=== PATIENT | female | born 1955 | race Caucasian/White ===

== ENCOUNTER 2020-06-02 12:51 | Inpatient (IN) | payer MEDICAID, MEDICARE, OTHER ==
[2020-06-02 19:45] VITALS: BP 111/71
[2020-06-02] MEDS ORDERED: OLANZapine 5 mg Oral Disintegrating Tab PO ONE (21:10)
[2020-06-03] MEDS ORDERED: Magnesium Hydroxide (MOM) 30 mL UDC PO PRN (10:27)
[2020-06-03] MEDS ORDERED: Acetaminophen 500 MG TAB PO PRN (10:27)
[2020-06-03] MEDS ORDERED: Maalox 30 mL Cup PO PRN (10:27)
--- NOTE | 2020-06-03 15:56 | History & Physical ---
ADMIT DATE: 06/02/2020 HISTORY OF PRESENT ILLNESS: We have a 65-year-old female with hypertension, who is admitted for acute psychosis. The patient is aggressive, delusional, having bizarre thoughts. At this time, the patient has no nausea, vomiting, abdominal pain, diarrhea, rectal bleeding, or melena. PAST MEDICAL HISTORY: 1. Depression. 2. Hypertension. PAST SURGICAL HISTORY: None. MEDICATIONS: List reviewed. ALLERGIES: None. SOCIAL HISTORY: Tobacco, IV drugs, ETOH negative. PHYSICAL EXAMINATION: VITAL SIGNS: Temperature is 97.5, pulse 92, respirations 20, blood pressure 137/77, satting 97%. HEENT: Normocephalic, atraumatic head exam. NECK: Supple. CARDIOVASCULAR: Regular rate and rhythm. LUNGS: Decreased breath sounds. ABDOMEN: Soft, nontender. EXTREMITIES: No edema, cyanosis or clubbing. CN is grossly intact ASSESSMENT: 1. Hypertension. 2. Depression. PLAN: The patient will have routine labs done. CBC, CMP. We will check for COVID. JOB# [id number] JUAN JOSE
--- NOTE | 2020-06-03 23:01 | Psychiatric Evaluation ---
DATE OF SERVICE: 06/03/2020 IDENTIFYING INFORMATION: The patient is a 55-year-old female. CHIEF COMPLAINT: "I am hearing voices and I am going to kill myself." HISTORY OF PRESENT ILLNESS: The patient was brought on a hold from the [facility] on a hold for danger to self. According to the hold, the patient apparently was hearing voices for a few days and that she did not know where she was. She did not know what the day. She was guarded. She is depressed. The patient has been anxious with a history of schizophrenia. When I talked to her, she was lying. She has no eye contact whatsoever. Admits to using Speed, vodka and heroin. She last used vodka and heroin few days ago. Urine drug screen was positive for meth. She reports that she is sleeping all the time. Appetite is okay. She reports hearing voices for years and sometimes she feels like she wanted to harm herself, unable to contract for safety. She reports sometimes the voices tell her to harm herself. Onset of illness has been going on for years, unable to be more specific. PAST PSYCHIATRIC HISTORY: The patient had multiple prior hospitalizations at least more than twice in the last 10 years and has 2 prior suicide attempts by overdosing on drugs. SUBSTANCE ABUSE HISTORY: Using Speed, vodka and heroin if she is home for a year and has been using lately, but has been using speed and vodka. She said she last used it a week ago. Unable to be more specific about it. MEDICAL HISTORY: The patient has no known drug allergy. I will defer the medical condition to the medical doctor. The patient advised scarf to the base of her nose that is tender to touch and redness. FAMILY AND SOCIAL HISTORY: The patient reported that she is . She has 3 children, 2 boys and a girl. However, it was very hard to get information from her to be pushed very hard. She was hard of hearing. She has 10th grade education. 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 Denies any abuse. She later said she lives in [place]. MENTAL STATUS EXAMINATION: The patient is appropriately dressed, not very groomed. She has no eye contact, whatsoever. Speech is coherent. She has some thought blocking. She was alert. She was unable to tell me the date. When asked where she was, she said I am very far away from home. She reports that she hears voices and she wanted to harm herself because of that. She denies any intent to harm anyone. She has been hearing voices for years and sleeps all the time. Appetite is okay. She gets angry, irritable. She seems to have average intelligence, but though she was uncooperative, we will further investigate asking long-term memory is good for her age, date of . Recent memory is good. She remember events after coming here with her breakfast. Immediate memory is poor, cannot concentrate enough and repeat things after me. Insight about illness is poor, does not realize what problem she has. Judgment was fair, however, she wanted to harm himself. IMPRESSION: Schizoaffective disorder, bipolar type, polysubstance abuse, vodka, alcohol and Speed. History of alcohol having used. MEDICAL DIAGNOSIS: As per medical doctor. PLAN: The patient was started back on her medication, which is BuSpar 15 mg twice a day, Haldol 5 mg twice a day at bedtime and olanzapine 10 mg at bedtime. We will do group therapy, milieu therapy, and individual therapy. ESTIMATED LENGTH OF STAY: 3-7 days. DISCHARGE CRITERIA: Decreasing depression, psychosis. No longer suicidal. After discharge, outpatient treatment. JOB# [id number] MTDD
[2020-06-04] MEDS: Multivitamin Tab PO SCH (08:31)
[2020-06-04 15:41] LABS: CHOLESTEROL 159 mg/dL (<200); TRIGLYCERIDES 129 mg/dL (30-150)
[2020-06-04 15:42] LABS: LDL CHOLESTEROL 116 mg/dL (0-129)
--- NOTE | 2020-06-04 16:02 | Internal Medicine Prog Note ---
Internal Medicine Subjective - Subjective Service Date: 06/04/20 Patient seen and examined:: without staff Patient is:: awake, asleep Per staff patient has:: no adverse event, no episodes of fall Internal Medicine Objective - Results Recent Labs: Laboratory Last Values POC Glucose 100 MG/DL (70 - 105) 06/02/20 19:47 Triglycerides 129 mg/dL (30-150) 06/04/20 12:49 Cholesterol 159 mg/dL (<200) 06/04/20 12:49 LDL Cholesterol 116 mg/dL (0-129) 06/04/20 12:49 HDL Cholesterol 39 mg/dL (>55) L 06/04/20 12:49 - Physical Exam Vitals and I&O: Vital Signs Temp 97.0 F 06/04/20 14:00 Pulse 109 06/04/20 14:00 Resp 20 06/04/20 14:00 BP 117/92 06/04/20 14:00 Pulse Ox 97 06/04/20 14:00 Intake & Output 06/03/20 06/04/20 06/04/20 18:59 06:59 18:59 Intake Total 1200 120 Balance 1200 120 Intake: Oral 1200 120 Other: # Voids 4 2 # Bowel Movements 1 Active Medications: Current Medications Acetaminophen (Tylenol) 650 mg PO Q4H PRN PRN Reason: Pain (Mild 1-3) Stop: 08/02/20 10:26 Last Admin: 06/03/20 10:36 Dose: 650 mg Acetaminophen (Tylenol Extra Strength) 1,000 mg PO Q6H PRN PRN Reason: Pain (Moderate 4-6) Stop: 08/02/20 10:26 Al Hydrox/Mg Hydrox/Simethicone (Maalox) 30 ml PO Q4HR PRN PRN Reason: GI DISTRESS Stop: 08/02/20 10:26 Buspirone HCl (Buspar) 15 mg PO BID ANDRES Stop: 08/02/20 08:59 Last Admin: 06/04/20 08:31 Dose: 15 mg Haloperidol (Haldol) 5 mg PO HS ANDRES; Protocol Stop: 08/02/20 20:59 Last Admin: 06/03/20 20:51 Dose: 5 mg Ibuprofen (Motrin) 400 mg PO Q4H PRN PRN Reason: Pain (Severe 7-10) Stop: 08/02/20 10:26 Last Admin: 06/04/20 15:34 Dose: 400 mg Lorazepam (Ativan) 0.5 mg PO Q4HR PRN; Protocol PRN Reason: Anxiety Stop: 07/03/20 10:26 Last Admin: 06/04/20 08:32 Dose: 0.5 mg Magnesium Hydroxide (Milk Of Magnesia) 30 ml PO HS PRN PRN Reason: Constipation Multivitamins/Vitamin C (Theragran) 1 tab PO DAILY ANDRES Stop: 08/03/20 08:59 Last Admin: 06/04/20 08:31 Dose: 1 tab Olanzapine (Zyprexa) 15 mg PO DAILY ANDRES; Protocol Stop: 08/04/20 08:59 Trazodone HCl (Desyrel) 100 mg PO HS ANDRES Stop: 08/02/20 20:59 Last Admin: 06/03/20 20:51 Dose: 100 mg Zolpidem Tartrate (Ambien) 5 mg PO HS PRN PRN Reason: Insomnia Stop: 08/02/20 10:26 Last Admin: 06/03/20 22:53 Dose: 5 mg HEENT: NC/AT Neck: Supple Lungs: CTAB Cardiovascular: RRR, Normal S1, Normal S2 Abdomen: soft Extremities: clear Internal Medicine Assmt/Plan - Assessment Assessment: 1. HTN 2. Depression - Plan Plan: continue supportive care d/w r.n. reviewed complete medical records
[2020-06-04 17:00] LABS: HEMATOCRIT 45.6 % (36-48); HEMOGLOBIN 14.6 g/dL (12.0-16.0); MEAN CORPUSCULAR HEMOGLOBIN 27 pg (27-31); MEAN CORPUSCULAR HGB CONC 32 % (32-36); MEAN CORPUSCULAR VOLUME 85 fL (79.0-98.0); PLATELET COUNT 123 K/uL (130-430); RED BLOOD COUNT 5.36 MIL/uL (4.2-6.2); RED CELL DISTRIBUTION WIDTH 14.5 % (9.0-15.0); WHITE BLOOD COUNT 8.7 K/uL (4.8-10.8)
[2020-06-04 17:01] LABS: % NEUTROPHILS 70.5 % (40-70); BASOPHILS # (AUTO) 0.1 K/uL (0.0-0.2); BASOPHILS % (AUTO) 0.7 % (0.0-2.0); EOSINOPHILS # (AUTO) 0.3 K/uL (0.0-0.4); EOSINOPHILS % (AUTO) 3.7 % (0-4); LYMPHOCYTES # (AUTO) 1.5 K/uL (1.0-5.5); LYMPHOCYTES % (AUTO) 17.5 % (20.5-51.5); MONOCYTES # (AUTO) 0.7 K/uL (0.0-1.0); MONOCYTES % (AUTO) 7.6 % (1.7-9.3); NEUTROPHILS # (AUTO) 6.2 K/uL (1.8-7.7)
--- NOTE | 2020-06-04 18:48 | Progress Notes ---
DATE: 06/04/2020 Case was discussed with staff of the patient, reviewed records. The patient is isolating herself. She continues to look tired, overwhelmed. She is not sure if she is hearing voices or seeing nightmares, but then she cannot remember. She is not forthcoming much with the information though she continues to be easily agitated, sleeping well, eating well or at least better as per the staff. No side effects with the medication, no sedation, no nausea, no extrapyramidal symptoms. I will be increasing her Zyprexa to 50 mg at bedtime and lab work showed blood sugar within normal limits. We will continue outpatient group therapy, milieu therapy, and adjust medications as needed. JOB# [id number]
[2020-06-05 05:24] LABS: A1C 5.5 % (4.8-5.6)
[2020-06-05] MEDS: Multivitamin Tab PO SCH (08:36)
--- NOTE | 2020-06-05 14:20 | Progress Notes ---
DATE: 06/05/2020 COVERING PHYSICIAN: Monique Posadas MD SUBJECTIVE: The patient was interviewed. Case was discussed with staff. Chart and records were reviewed. Per the staff, the patient continues to be very depressed and suicidal, remains on 1:1 sitter due to her suicidal thoughts. The patient was visited at bedside. The patient reports that she is not sleeping well. She has nightmares. She feels depressed. She feels suicidal. She reports the medications are not causing any side effects, but she reports that she is not feeling better at this time. MENTAL STATUS EXAMINATION: The patient appears her stated age, lying in the hospital bed, looking away from this provider, unkempt, depressed. Speech is soft. Thought process is concrete, admitting to suicidal thoughts. Denying any homicidal thoughts, denying any hallucinations at this time, but does admit to intimidating voices and also nightmares. She is alert and oriented x 2. Insight, judgment and impulse control appeared to be poor. ASSESSMENT AND PLAN: We will continue the patient's acute psychiatric hospitalization. We will continue 1:1 sitter. We will continue medications as prescribed. We will encourage the patient to verbalize her needs and participate in group and milieu therapy. JOB# [id number]
--- NOTE | 2020-06-05 14:56 | Internal Medicine Prog Note ---
Internal Medicine Subjective - Subjective Service Date: 06/05/20 Patient seen and examined:: without staff Patient is:: awake, asleep Per staff patient has:: no adverse event, no episodes of fall Internal Medicine Objective - Results Result Diagrams: 06/04/20 12:49 Recent Labs: Laboratory Last Values WBC 8.7 K/uL (4.8-10.8) 06/04/20 12:49 RBC 5.36 MIL/uL (4.2-6.2) 06/04/20 12:49 Hgb 14.6 g/dL (12.0-16.0) 06/04/20 12:49 Hct 45.6 % (36-48) 06/04/20 12:49 MCV 85 fL (79.0-98.0) 06/04/20 12:49 MCH 27 pg (27-31) 06/04/20 12:49 MCHC 32 % (32-36) 06/04/20 12:49 RDW 14.5 % (9.0-15.0) 06/04/20 12:49 Plt Count 123 K/uL (130-430) L 06/04/20 12:49 MPV 10.7 fl (7.4-10.4) H 06/04/20 12:49 Neut % (Auto) 70.5 % (40-70) H 06/04/20 12:49 Lymph % (Auto) 17.5 % (20.5-51.5) L 06/04/20 12:49 [place] % (Auto) 7.6 % (1.7-9.3) 06/04/20 12:49 Eos % (Auto) 3.7 % (0-4) 06/04/20 12:49 Baso % (Auto) 0.7 % (0.0-2.0) 06/04/20 12:49 Neut # (Auto) 6.2 K/uL (1.8-7.7) 06/04/20 12:49 Lymph # (Auto) 1.5 K/uL (1.0-5.5) 06/04/20 12:49 [place] # (Auto) 0.7 K/uL (0.0-1.0) 06/04/20 12:49 Eos # (Auto) 0.3 K/uL (0.0-0.4) 06/04/20 12:49 Baso # (Auto) 0.1 K/uL (0.0-0.2) 06/04/20 12:49 POC Glucose 100 MG/DL (70 - 105) 06/02/20 19:47 Hemoglobin A1c 5.5 % (4.8-5.6) 06/04/20 12:49 Triglycerides 129 mg/dL (30-150) 06/04/20 12:49 Cholesterol 159 mg/dL (<200) 06/04/20 12:49 LDL Cholesterol 116 mg/dL (0-129) 06/04/20 12:49 HDL Cholesterol 39 mg/dL (>55) L 06/04/20 12:49 - Physical Exam Vitals and I&O: Vital Signs Temp 98.7 F 06/05/20 06:13 Pulse 100 06/05/20 06:13 Resp 16 06/05/20 08:00 BP 115/70 06/05/20 06:13 Pulse Ox 93 06/05/20 06:13 Intake & Output 06/04/20 06/05/20 06/05/20 18:59 06:59 18:59 Intake Total 1200 300 Balance 1200 300 Intake: Oral 1200 300 Other: # Voids 4 1 # Bowel Movements 1 0 Active Medications: Current Medications Acetaminophen (Tylenol) 650 mg PO Q4H PRN PRN Reason: Pain (Mild 1-3) Stop: 08/02/20 10:26 Last Admin: 06/03/20 10:36 Dose: 650 mg Acetaminophen (Tylenol Extra Strength) 1,000 mg PO Q6H PRN PRN Reason: Pain (Moderate 4-6) Stop: 08/02/20 10:26 Al Hydrox/Mg Hydrox/Simethicone (Maalox) 30 ml PO Q4HR PRN PRN Reason: GI DISTRESS Stop: 08/02/20 10:26 Buspirone HCl (Buspar) 15 mg PO BID ANDRES Stop: 08/02/20 08:59 Last Admin: 06/05/20 08:28 Dose: 15 mg Haloperidol (Haldol) 5 mg PO HS ANDRES; Protocol Stop: 08/02/20 20:59 Last Admin: 06/04/20 21:14 Dose: 5 mg Ibuprofen (Motrin) 400 mg PO Q4H PRN PRN Reason: Pain (Severe 7-10) Stop: 08/02/20 10:26 Last Admin: 06/05/20 11:37 Dose: 400 mg Lorazepam (Ativan) 0.5 mg PO Q4HR PRN; Protocol PRN Reason: Anxiety Stop: 07/03/20 10:26 Last Admin: 06/05/20 08:28 Dose: 0.5 mg Magnesium Hydroxide (Milk Of Magnesia) 30 ml PO HS PRN PRN Reason: Constipation Multivitamins/Vitamin C (Theragran) 1 tab PO DAILY ANDRES Stop: 08/03/20 08:59 Last Admin: 06/05/20 08:36 Dose: 1 tab Neomycin/Polymyxin/Bacitracin (Triple Antibiotic Pkt) 1 pkt TP BID ANDRES Stop: 08/04/20 14:59 Olanzapine (Zyprexa) 15 mg PO DAILY ANDRES; Protocol Stop: 08/04/20 08:59 Last Admin: 06/05/20 08:28 Dose: 15 mg Trazodone HCl (Desyrel) 100 mg PO HS ANDRES Stop: 08/02/20 20:59 Last Admin: 06/04/20 21:13 Dose: 100 mg Zolpidem Tartrate (Ambien) 5 mg PO HS PRN PRN Reason: Insomnia Stop: 08/02/20 10:26 Last Admin: 06/03/20 22:53 Dose: 5 mg HEENT: NC/AT Neck: Supple Lungs: CTAB Cardiovascular: RRR, Normal S1, Normal S2 Abdomen: soft Extremities: clear Internal Medicine Assmt/Plan - Assessment Assessment: 1. HTN 2. Depression - Plan Plan: continue supportive care d/w r.n. reviewed complete medical records
[2020-06-05] MEDS ORDERED: Triple Antibiotic 0.94 gm Pkt TP SCH (15:00)
[2020-06-05] MEDS ORDERED: Triple Antibiotic 0.94 gm Pkt TP ONE (17:20)
[2020-06-05] MEDS: Triple Antibiotic 0.94 gm Pkt TP SCH (17:23)
[2020-06-06] MEDS: Multivitamin Tab PO SCH (08:16)
[2020-06-06] MEDS: Triple Antibiotic 0.94 gm Pkt TP SCH ×2 (08:16→16:27)
--- NOTE | 2020-06-06 12:33 | Progress Notes ---
DATE: 06/06/[address] Posadas. SUBJECTIVE: The patient was interviewed. Case was discussed with staff. Chart and records were reviewed. Per the staff, the patient is with confusion, depressed and anxious at time, overall withdrawn, remains on 1:1 sitter yesterday due to suicidal thoughts. The patient this morning is depressed, withdrawn, isolated to her room, not willing to cooperate much with the interview, admits to ongoing depression and suicidal thoughts, wanting to sleep and not willing to cooperate. MENTAL STATUS EXAMINATION: The patient is lying in the hospital bed. She is unkempt appearing, poor eye contact, selectively mute, reports depression and suicidal thoughts ____ when does engage, overall not engaging. Thought process appears to be concrete. Denying any hallucinations at this time. Alert and oriented to person and place. Insight, judgment and impulse control appear to be poor. ASSESSMENT AND PLAN: We will continue the patient's acute psychiatric hospitalization given the severity of her symptoms and ongoing suicidal thoughts. We will continue medications as prescribed. We will encourage the patient to verbalize needs and attend to hygiene and also participate in group therapy. JOB# [id number]
[2020-06-06] MEDS: Nicotine 14 mg/24 hr Tdm TD SCH (13:54)
--- NOTE | 2020-06-06 14:31 | Internal Medicine Prog Note ---
Internal Medicine Subjective - Subjective Service Date: 06/06/20 Patient seen and examined:: without staff Patient is:: awake, asleep Per staff patient has:: no adverse event, no episodes of fall Internal Medicine Objective - Results Result Diagrams: 06/04/20 12:49 Recent Labs: Laboratory Last Values WBC 8.7 K/uL (4.8-10.8) 06/04/20 12:49 RBC 5.36 MIL/uL (4.2-6.2) 06/04/20 12:49 Hgb 14.6 g/dL (12.0-16.0) 06/04/20 12:49 Hct 45.6 % (36-48) 06/04/20 12:49 MCV 85 fL (79.0-98.0) 06/04/20 12:49 MCH 27 pg (27-31) 06/04/20 12:49 MCHC 32 % (32-36) 06/04/20 12:49 RDW 14.5 % (9.0-15.0) 06/04/20 12:49 Plt Count 123 K/uL (130-430) L 06/04/20 12:49 MPV 10.7 fl (7.4-10.4) H 06/04/20 12:49 Neut % (Auto) 70.5 % (40-70) H 06/04/20 12:49 Lymph % (Auto) 17.5 % (20.5-51.5) L 06/04/20 12:49 [place] % (Auto) 7.6 % (1.7-9.3) 06/04/20 12:49 Eos % (Auto) 3.7 % (0-4) 06/04/20 12:49 Baso % (Auto) 0.7 % (0.0-2.0) 06/04/20 12:49 Neut # (Auto) 6.2 K/uL (1.8-7.7) 06/04/20 12:49 Lymph # (Auto) 1.5 K/uL (1.0-5.5) 06/04/20 12:49 [place] # (Auto) 0.7 K/uL (0.0-1.0) 06/04/20 12:49 Eos # (Auto) 0.3 K/uL (0.0-0.4) 06/04/20 12:49 Baso # (Auto) 0.1 K/uL (0.0-0.2) 06/04/20 12:49 POC Glucose 100 MG/DL (70 - 105) 06/02/20 19:47 Hemoglobin A1c 5.5 % (4.8-5.6) 06/04/20 12:49 Triglycerides 129 mg/dL (30-150) 06/04/20 12:49 Cholesterol 159 mg/dL (<200) 06/04/20 12:49 LDL Cholesterol 116 mg/dL (0-129) 06/04/20 12:49 HDL Cholesterol 39 mg/dL (>55) L 06/04/20 12:49 - Physical Exam Vitals and I&O: Vital Signs Temp 98.7 F 06/06/20 06:17 Pulse 84 06/06/20 06:17 Resp 16 06/06/20 07:36 BP 113/71 06/06/20 06:17 Pulse Ox 91 06/06/20 06:17 Intake & Output 06/05/20 06/06/20 06/06/20 18:59 06:59 18:59 Intake Total 1200 240 Balance 1200 240 Intake: Oral 1200 240 Other: # Voids 5 2 # Bowel Movements 1 Active Medications: Current Medications Acetaminophen (Tylenol) 650 mg PO Q4H PRN PRN Reason: Pain (Mild 1-3) Stop: 08/02/20 10:26 Last Admin: 06/03/20 10:36 Dose: 650 mg Acetaminophen (Tylenol Extra Strength) 1,000 mg PO Q6H PRN PRN Reason: Pain (Moderate 4-6) Stop: 08/02/20 10:26 Al Hydrox/Mg Hydrox/Simethicone (Maalox) 30 ml PO Q4HR PRN PRN Reason: GI DISTRESS Stop: 08/02/20 10:26 Buspirone HCl (Buspar) 15 mg PO BID [facility] Stop: 08/02/20 08:59 Last Admin: 06/06/20 08:17 Dose: 15 mg Cephalexin Monohydrate (Keflex) 500 mg PO QID ANDRES Stop: 08/05/20 12:59 Last Admin: 06/06/20 13:55 Dose: 500 mg Haloperidol (Haldol) 5 mg PO HS [facility]; Protocol Stop: 08/02/20 20:59 Last Admin: 06/05/20 21:16 Dose: 5 mg Ibuprofen (Motrin) 400 mg PO Q4H PRN PRN Reason: Pain (Severe 7-10) Stop: 08/02/20 10:26 Last Admin: 06/06/20 00:09 Dose: 400 mg Lorazepam (Ativan) 0.5 mg PO Q4HR PRN; Protocol PRN Reason: Anxiety Stop: 07/03/20 10:26 Last Admin: 06/06/20 08:17 Dose: 0.5 mg Magnesium Hydroxide (Milk Of Magnesia) 30 ml PO HS PRN PRN Reason: Constipation Multivitamins/Vitamin C (Theragran) 1 tab PO DAILY ANDRES Stop: 08/03/20 08:59 Last Admin: 06/06/20 08:16 Dose: 1 tab Neomycin/Polymyxin/Bacitracin (Triple Antibiotic Pkt) 1 pkt TP BID ANDRES Stop: 08/04/20 14:59 Last Admin: 06/06/20 08:16 Dose: 1 pkt Nicotine (Nicotine Transdermal System) 14 mg TD DAILY ANDRES Stop: 08/05/20 13:14 Last Admin: 06/06/20 13:54 Dose: 14 mg Olanzapine (Zyprexa) 15 mg PO DAILY ANDRES; Protocol Stop: 08/04/20 08:59 Last Admin: 06/06/20 08:16 Dose: 15 mg Trazodone HCl (Desyrel) 100 mg PO HS ANDRES Stop: 08/02/20 20:59 Last Admin: 06/05/20 21:15 Dose: 100 mg Zolpidem Tartrate (Ambien) 5 mg PO HS PRN PRN Reason: Insomnia Stop: 08/02/20 10:26 Last Admin: 06/06/20 02:01 Dose: 5 mg HEENT: NC/AT Neck: Supple Lungs: CTAB Cardiovascular: RRR, Normal S1, Normal S2 Abdomen: soft Extremities: clear Internal Medicine Assmt/Plan - Assessment Assessment: 1. Cellulitis, nasal area 2. HTN - Plan Plan: keflex 500mg po q 6 hours continue supportive care d/w r.n. reviewed complete medical records
[2020-06-07] MEDS: Triple Antibiotic 0.94 gm Pkt TP SCH ×2 (08:30→16:52)
[2020-06-07] MEDS: Multivitamin Tab PO SCH (08:30)
[2020-06-07] MEDS: Nicotine 14 mg/24 hr Tdm TD SCH (09:00)
--- NOTE | 2020-06-07 14:48 | Internal Medicine Prog Note ---
Internal Medicine Subjective - Subjective Patient is:: awake, asleep Per staff patient has:: no adverse event, no episodes of fall Internal Medicine Objective - Results Result Diagrams: 06/04/20 12:49 Recent Labs: Laboratory Last Values WBC 8.7 K/uL (4.8-10.8) 06/04/20 12:49 RBC 5.36 MIL/uL (4.2-6.2) 06/04/20 12:49 Hgb 14.6 g/dL (12.0-16.0) 06/04/20 12:49 Hct 45.6 % (36-48) 06/04/20 12:49 MCV 85 fL (79.0-98.0) 06/04/20 12:49 MCH 27 pg (27-31) 06/04/20 12:49 MCHC 32 % (32-36) 06/04/20 12:49 RDW 14.5 % (9.0-15.0) 06/04/20 12:49 Plt Count 123 K/uL (130-430) L 06/04/20 12:49 MPV 10.7 fl (7.4-10.4) H 06/04/20 12:49 Neut % (Auto) 70.5 % (40-70) H 06/04/20 12:49 Lymph % (Auto) 17.5 % (20.5-51.5) L 06/04/20 12:49 [place] % (Auto) 7.6 % (1.7-9.3) 06/04/20 12:49 Eos % (Auto) 3.7 % (0-4) 06/04/20 12:49 Baso % (Auto) 0.7 % (0.0-2.0) 06/04/20 12:49 Neut # (Auto) 6.2 K/uL (1.8-7.7) 06/04/20 12:49 Lymph # (Auto) 1.5 K/uL (1.0-5.5) 06/04/20 12:49 [place] # (Auto) 0.7 K/uL (0.0-1.0) 06/04/20 12:49 Eos # (Auto) 0.3 K/uL (0.0-0.4) 06/04/20 12:49 Baso # (Auto) 0.1 K/uL (0.0-0.2) 06/04/20 12:49 POC Glucose 100 MG/DL (70 - 105) 06/02/20 19:47 Hemoglobin A1c 5.5 % (4.8-5.6) 06/04/20 12:49 Triglycerides 129 mg/dL (30-150) 06/04/20 12:49 Cholesterol 159 mg/dL (<200) 06/04/20 12:49 LDL Cholesterol 116 mg/dL (0-129) 06/04/20 12:49 HDL Cholesterol 39 mg/dL (>55) L 06/04/20 12:49 - Physical Exam Vitals and I&O: Vital Signs Temp 98.0 F 06/07/20 14:25 Pulse 85 06/07/20 14:25 Resp 20 06/07/20 14:25 BP 110/51 06/07/20 14:25 Pulse Ox 91 06/07/20 14:25 Intake & Output 06/06/20 06/07/20 06/07/20 18:59 06:59 18:59 Intake Total 950 Balance 950 Intake: Oral 950 Active Medications: Current Medications Acetaminophen (Tylenol) 650 mg PO Q4H PRN PRN Reason: Pain (Mild 1-3) Stop: 08/02/20 10:26 Last Admin: 06/07/20 13:14 Dose: 650 mg Acetaminophen (Tylenol Extra Strength) 1,000 mg PO Q6H PRN PRN Reason: Pain (Moderate 4-6) Stop: 08/02/20 10:26 Al Hydrox/Mg Hydrox/Simethicone (Maalox) 30 ml PO Q4HR PRN PRN Reason: GI DISTRESS Stop: 08/02/20 10:26 Buspirone HCl (Buspar) 15 mg PO BID ANDRES Stop: 08/02/20 08:59 Last Admin: 06/07/20 08:30 Dose: 15 mg Cephalexin Monohydrate (Keflex) 500 mg PO QID [facility]RES Stop: 08/05/20 12:59 Last Admin: 06/07/20 13:16 Dose: 500 mg Haloperidol (Haldol) 5 mg PO HS [facility]; Protocol Stop: 08/02/20 20:59 Last Admin: 06/06/20 21:04 Dose: 5 mg Ibuprofen (Motrin) 400 mg PO Q4H PRN PRN Reason: Pain (Severe 7-10) Stop: 08/02/20 10:26 Last Admin: 06/06/20 00:09 Dose: 400 mg Lorazepam (Ativan) 0.5 mg PO Q4HR PRN; Protocol PRN Reason: Anxiety Stop: 07/03/20 10:26 Last Admin: 06/06/20 21:04 Dose: 0.5 mg Magnesium Hydroxide (Milk Of Magnesia) 30 ml PO HS PRN PRN Reason: Constipation Multivitamins/Vitamin C (Theragran) 1 tab PO DAILY ANDRES Stop: 08/03/20 08:59 Last Admin: 06/07/20 08:30 Dose: 1 tab Neomycin/Polymyxin/Bacitracin (Triple Antibiotic Pkt) 1 pkt TP BID [facility]RES Stop: 08/04/20 14:59 Last Admin: 06/07/20 08:30 Dose: 1 pkt Nicotine (Nicotine Transdermal System) 14 mg TD DAILY [facility]RES Stop: 08/05/20 13:14 Last Admin: 06/07/20 09:00 Dose: 14 mg Olanzapine 15 mg/ Olanzapine 2 (.5 mg) 17.5 mg PO DAILY [facility]RES Stop: 08/07/20 08:59 Trazodone HCl (Desyrel) 100 mg PO HS [facility]RES Stop: 08/02/20 20:59 Last Admin: 06/06/20 21:04 Dose: 100 mg Zolpidem Tartrate (Ambien) 5 mg PO HS PRN PRN Reason: Insomnia Stop: 08/02/20 10:26 Last Admin: 06/06/20 02:01 Dose: 5 mg HEENT: NC/AT Neck: Supple Lungs: CTAB Cardiovascular: RRR, Normal S1, Normal S2 Abdomen: soft Extremities: clear Internal Medicine Assmt/Plan - Assessment Assessment: 1. Cellulitis, nasal area 2. HTN - Plan Plan: continue keflex 500mg po q 6 hours continue supportive care d/w r.n. reviewed complete medical records
--- NOTE | 2020-06-08 00:48 | Progress Notes ---
DATE: 06/07/2020 Case was discussed with staff of the patient, reviewed records. The patient continues to be depressed, isolating herself, confused, unable to make safe plan for self-care. Continues to be suicidal. She is on 1:1 because of that. She reports she is still hearing voices, but she does not acknowledge what they are saying, but they are not command hallucination she reports. Continues to be psychotic, unpredictable, impulsive, and needing redirection. She reports she wants to go to her father who lives in [place], I will be increasing Zyprexa to 17.5 mg at bedtime. No side effects with the medication, no sedation, no nausea, no extrapyramidal symptoms. We will continue outpatient group therapy, milieu therapy, adjust medication as needed. JOB# [id number] [id number]
[2020-06-08] MEDS: Nicotine 14 mg/24 hr Tdm TD SCH (08:42)
[2020-06-08] MEDS: Triple Antibiotic 0.94 gm Pkt TP SCH ×2 (08:42→17:00)
[2020-06-08] MEDS: OLANZapine 15 MG, OLANZapine 2.5 MG PO SCH (08:44)
[2020-06-08] MEDS: Multivitamin Tab PO SCH (08:44)
--- NOTE | 2020-06-08 18:25 | Internal Medicine Prog Note ---
Internal Medicine Subjective - Subjective Service Date: 06/08/20 Patient seen and examined:: without staff Patient is:: awake, asleep Per staff patient has:: no adverse event, no episodes of fall Internal Medicine Objective - Results Result Diagrams: 06/04/20 12:49 Recent Labs: Laboratory Last Values WBC 8.7 K/uL (4.8-10.8) 06/04/20 12:49 RBC 5.36 MIL/uL (4.2-6.2) 06/04/20 12:49 Hgb 14.6 g/dL (12.0-16.0) 06/04/20 12:49 Hct 45.6 % (36-48) 06/04/20 12:49 MCV 85 fL (79.0-98.0) 06/04/20 12:49 MCH 27 pg (27-31) 06/04/20 12:49 MCHC 32 % (32-36) 06/04/20 12:49 RDW 14.5 % (9.0-15.0) 06/04/20 12:49 Plt Count 123 K/uL (130-430) L 06/04/20 12:49 MPV 10.7 fl (7.4-10.4) H 06/04/20 12:49 Neut % (Auto) 70.5 % (40-70) H 06/04/20 12:49 Lymph % (Auto) 17.5 % (20.5-51.5) L 06/04/20 12:49 [place] % (Auto) 7.6 % (1.7-9.3) 06/04/20 12:49 Eos % (Auto) 3.7 % (0-4) 06/04/20 12:49 Baso % (Auto) 0.7 % (0.0-2.0) 06/04/20 12:49 Neut # (Auto) 6.2 K/uL (1.8-7.7) 06/04/20 12:49 Lymph # (Auto) 1.5 K/uL (1.0-5.5) 06/04/20 12:49 [place] # (Auto) 0.7 K/uL (0.0-1.0) 06/04/20 12:49 Eos # (Auto) 0.3 K/uL (0.0-0.4) 06/04/20 12:49 Baso # (Auto) 0.1 K/uL (0.0-0.2) 06/04/20 12:49 POC Glucose 100 MG/DL (70 - 105) 06/02/20 19:47 Hemoglobin A1c 5.5 % (4.8-5.6) 06/04/20 12:49 Triglycerides 129 mg/dL (30-150) 06/04/20 12:49 Cholesterol 159 mg/dL (<200) 06/04/20 12:49 LDL Cholesterol 116 mg/dL (0-129) 06/04/20 12:49 HDL Cholesterol 39 mg/dL (>55) L 06/04/20 12:49 - Physical Exam Vitals and I&O: Vital Signs Temp 97.7 F 06/08/20 14:32 Pulse 101 06/08/20 14:32 Resp 18 06/08/20 14:32 BP 96/53 06/08/20 14:32 Pulse Ox 97 06/08/20 14:32 Intake & Output 06/07/20 06/08/20 06/08/20 18:59 06:59 18:59 Intake Total 5825 130 9792 Balance 9482 278 2288 Intake: Oral 3699 597 8493 Other: # Voids 4 3 4 # Bowel Movements 1 0 1 Stool Characteristics Foamy Foamy Active Medications: Current Medications Acetaminophen (Tylenol) 650 mg PO Q4H PRN PRN Reason: Pain (Mild 1-3) Stop: 08/02/20 10:26 Last Admin: 06/07/20 13:14 Dose: 650 mg Acetaminophen (Tylenol Extra Strength) 1,000 mg PO Q6H PRN PRN Reason: Pain (Moderate 4-6) Stop: 08/02/20 10:26 Last Admin: 06/07/20 20:47 Dose: 1,000 mg Al Hydrox/Mg Hydrox/Simethicone (Maalox) 30 ml PO Q4HR PRN PRN Reason: GI DISTRESS Stop: 08/02/20 10:26 Buspirone HCl (Buspar) 15 mg PO BID [facility] Stop: 08/02/20 08:59 Last Admin: 06/08/20 08:44 Dose: 15 mg Cephalexin Monohydrate (Keflex) 500 mg PO QID [facility] Stop: 08/05/20 12:59 Last Admin: 06/08/20 13:48 Dose: 500 mg Haloperidol (Haldol) 5 mg PO HS [facility]; Protocol Stop: 08/02/20 20:59 Last Admin: 06/07/20 20:47 Dose: 5 mg Ibuprofen (Motrin) 400 mg PO Q4H PRN PRN Reason: Pain (Severe 7-10) Stop: 08/02/20 10:26 Last Admin: 06/06/20 00:09 Dose: 400 mg Lorazepam (Ativan) 0.5 mg PO Q4HR PRN; Protocol PRN Reason: Anxiety Stop: 07/03/20 10:26 Last Admin: 06/06/20 21:04 Dose: 0.5 mg Magnesium Hydroxide (Milk Of Magnesia) 30 ml PO HS PRN PRN Reason: Constipation Multivitamins/Vitamin C (Theragran) 1 tab PO DAILY [facility] Stop: 08/03/20 08:59 Last Admin: 06/08/20 08:44 Dose: 1 tab Neomycin/Polymyxin/Bacitracin (Triple Antibiotic Pkt) 1 pkt TP BID [facility] Stop: 08/04/20 14:59 Last Admin: 06/08/20 08:42 Dose: 1 pkt Nicotine (Nicotine Transdermal System) 14 mg TD DAILY [facility] Stop: 08/05/20 13:14 Last Admin: 06/08/20 08:42 Dose: 14 mg Olanzapine 15 mg/ Olanzapine 2 (.5 mg) 17.5 mg PO DAILY [facility] Stop: 08/07/20 08:59 Last Admin: 06/08/20 08:44 Dose: 17.5 mg Trazodone HCl (Desyrel) 100 mg PO HS [facility] Stop: 08/02/20 20:59 Last Admin: 06/07/20 20:47 Dose: 100 mg Zolpidem Tartrate (Ambien) 5 mg PO HS PRN PRN Reason: Insomnia Stop: 08/02/20 10:26 Last Admin: 06/06/20 02:01 Dose: 5 mg HEENT: NC/AT Neck: Supple Lungs: CTAB Cardiovascular: RRR, Normal S1, Normal S2 Abdomen: soft Extremities: clear Internal Medicine Assmt/Plan - Assessment Assessment: 1. Cellulitis, nasal area 2. HTN - Plan Plan: continue keflex 500mg po q 6 hours check cmp continue supportive care d/w r.n. reviewed complete medical records Nutritional Asmnt/Malnutr-PDOC - Dietary Evaluation Malnutrition Findings (Please click <Entered> for more info): Nutritional Asmnt/Malnutrition Start: 06/08/20 12: 32 Text: Status: Complete Freq: Protocol: Document 06/08/20 12:32 SOFIE (Rec: 06/08/20 12:34 SOFIE [id number] [id number]) Nutritional Asmnt/Malnutrition Patient General Information Nutritional Screening Low Risk Diagnosis Acute Psychosis Pertinent Medical Hx/Surgical Hx HTN Subjective Information Pt is a 65-year-old female admitted on 06/02 d/t acute psychosis with aggressiveness, delusions, and bizarre behaviors. Pt is eating an estimated 96% of meals since admit date (x5 days) Per Meal/ Nutrition Activity Record. Dietary is currently providing an estimated 2200 kcals and 110 gm Pro, per pt intake this is providing an estimated 2100 kcals and 106gm pro to meet 100+% kcal and 100+% Pro needs. Visited pt in her room, she stated she had a good appetite and the food was fine , understood her Diet Rx. Anthropometrics HT: 57 WT: 196 LB (89.09 kg) ABW: 150 LB (68.30 kg) BMI: 30.70 (Obese, class I) GI/ Skin Integrity GI: WNL, Soft, Non-tender, Large BM: 06/07 x1 I/O: 1680/Not Noted Skin: WNL, boil below nose Tadeo: 22 Diet Order: Mechanical Soft, JEN Estimated Energy Needs: ( Geriatric, ABW) 0450-8696 kcals (20-25 kcals/ kg) 55-70g Pro (0.8-1.0 g/kg) 6559-5226 ml (20-25 ml/kg) Current Diet Order/ Nutrition Support Mechanical Soft, JEN Patient / S.O Can Pertinent Medications Maalox (PRN), MOM (PRN), Theragran Pertinent Labs 06/04: HDL 39 Nutritional Hx/Data Height 1.7 m Height (Calculated Centimeters) 170.2 Current Weight (lbs) 88.904 kg Weight (Calculated Kilograms) 88.9 Weight (Calculated Grams) 37779.1 [place] Body Weight 135 LB (61.36 kg) % [place] Body Weight 145 Body Mass Index (BMI) 30.7 Weight Status Obese GI Symptoms Skin Integrity/Comment: Skin: WNL, boil below nose Tadeo: 22 Current %PO Good (75-100%) Estimated Nutritional Goals BEE in Kcals: Adj wt of IBW Calories/Kcals/Kg 20-25 Kcals Calculated 5210-9891 Protein: Adj wt of IBW Protein g/k.8-1.0 Protein Calculated 55-70 Fluid: ml 0057-0385 ml (20-25 ml/kg) Nutritional Problem 1. Problem Problem Obese, class I Etiology r/t consistent energy overconsumption Signs/Symptoms: aeb BMI >30 (30.70). Malnutrition Related to Morbid Obesity Malnutrition related to morbid obesity No Intervention/Recommendation Comments Continue Mechanical Soft, JEN diet as tolerated. Expected Outcomes/Goals Expected Outcomes/Goals 1.PO intake to continue to meet >75% of estimated nutritional needs. 2.Monitor PO intake, wt, nutrition related labs, and skin integrity. 3.F/U as low risk in 7-10 days , 06/15-06/18.
--- NOTE | 2020-06-08 19:12 | Progress Notes ---
DATE: 06/08/2020 Case was discussed with staff of the patient, reviewed records. The patient refused to have poor insight, internally preoccupied. She is currently minimizing any intent to harm herself, minimizing the voices. She is preoccupied now with leaving. She is sleeping well, eating well. No side effects with the medication, no sedation, no nausea, no extrapyramidal symptoms. She tolerated the increase in Zyprexa to 17.5 mg at bedtime. We will continue to work with the patient in group therapy, milieu therapy, and adjust the medication as needed. JOB# [id number]
[2020-06-09] MEDS: Nicotine 14 mg/24 hr Tdm TD SCH (10:02)
[2020-06-09] MEDS: OLANZapine 15 MG, OLANZapine 2.5 MG PO SCH (10:03)
[2020-06-09] MEDS: Multivitamin Tab PO SCH (10:03)
[2020-06-09] MEDS: Triple Antibiotic 0.94 gm Pkt TP SCH ×2 (10:03→17:19)
[2020-06-09 12:46] LABS: POTASSIUM SERUM 3.7 mmol/L (3.5-5.1)
[2020-06-09 12:47] LABS: CALCIUM SERUM 8.5 mg/dL (8.4-10.2); CREATININE - SERUM 0.94 mg/dL (0.70-1.30); TOTAL PROTEIN,SERUM 6.2 g/dL (6.4-8.3)
[2020-06-09 12:48] LABS: BILIRUBIN,TOTAL 0.4 mg/dL (0.0-1.0)
--- NOTE | 2020-06-09 13:53 | Internal Medicine Prog Note ---
Internal Medicine Subjective - Subjective Service Date: 06/09/20 Patient seen and examined:: without staff Patient is:: awake, asleep Per staff patient has:: no adverse event, no episodes of fall Internal Medicine Objective - Results Result Diagrams: 06/04/20 12:49 06/09/20 09:21 Recent Labs: Laboratory Last Values WBC 8.7 K/uL (4.8-10.8) 06/04/20 12:49 RBC 5.36 MIL/uL (4.2-6.2) 06/04/20 12:49 Hgb 14.6 g/dL (12.0-16.0) 06/04/20 12:49 Hct 45.6 % (36-48) 06/04/20 12:49 MCV 85 fL (79.0-98.0) 06/04/20 12:49 MCH 27 pg (27-31) 06/04/20 12:49 MCHC 32 % (32-36) 06/04/20 12:49 RDW 14.5 % (9.0-15.0) 06/04/20 12:49 Plt Count 123 K/uL (130-430) L 06/04/20 12:49 MPV 10.7 fl (7.4-10.4) H 06/04/20 12:49 Neut % (Auto) 70.5 % (40-70) H 06/04/20 12:49 Lymph % (Auto) 17.5 % (20.5-51.5) L 06/04/20 12:49 [place] % (Auto) 7.6 % (1.7-9.3) 06/04/20 12:49 Eos % (Auto) 3.7 % (0-4) 06/04/20 12:49 Baso % (Auto) 0.7 % (0.0-2.0) 06/04/20 12:49 Neut # (Auto) 6.2 K/uL (1.8-7.7) 06/04/20 12:49 Lymph # (Auto) 1.5 K/uL (1.0-5.5) 06/04/20 12:49 [place] # (Auto) 0.7 K/uL (0.0-1.0) 06/04/20 12:49 Eos # (Auto) 0.3 K/uL (0.0-0.4) 06/04/20 12:49 Baso # (Auto) 0.1 K/uL (0.0-0.2) 06/04/20 12:49 Sodium 140 mmol/L (136-145) 06/09/20 09:21 Potassium 3.7 mmol/L (3.5-5.1) 06/09/20 09:21 Chloride 107 mmol/L (98-107) 06/09/20 09:21 Carbon Dioxide 26 mmol/L (23-29) 06/09/20 09:21 Anion Gap 11 (5-15) 06/09/20 09:21 BUN 10 mg/dL (8-21) 06/09/20 09:21 Creatinine 0.94 mg/dL (0.70-1.30) 06/09/20 09:21 Glucose 133 mg/dL (70-99) H 06/09/20 09:21 POC Glucose 100 MG/DL (70 - 105) 06/02/20 19:47 Hemoglobin A1c 5.5 % (4.8-5.6) 06/04/20 12:49 Calcium 8.5 mg/dL (8.4-10.2) 06/09/20 09:21 Total Bilirubin 0.4 mg/dL (0.0-1.0) 06/09/20 09:21 AST 28 U/L (10-37) 06/09/20 09:21 ALT 48 U/L (12-78) 06/09/20 09:21 Alkaline Phosphatase 58 U/L (46-116) 06/09/20 09:21 Total Protein 6.2 g/dL (6.4-8.3) L 06/09/20 09:21 Albumin 2.8 g/dL (3.4-5.0) L 06/09/20 09:21 Triglycerides 129 mg/dL (30-150) 06/04/20 12:49 Cholesterol 159 mg/dL (<200) 06/04/20 12:49 LDL Cholesterol 116 mg/dL (0-129) 06/04/20 12:49 HDL Cholesterol 39 mg/dL (>55) L 06/04/20 12:49 - Physical Exam Vitals and I&O: Vital Signs Temp 97.9 F 06/09/20 05:58 Pulse 85 06/09/20 05:58 Resp 16 06/09/20 07:48 BP 114/72 06/09/20 05:58 Pulse Ox 91 06/09/20 05:58 Intake & Output 06/08/20 06/09/20 06/09/20 18:59 06:59 18:59 Intake Total 1200 480 Balance 1200 480 Intake: Oral 1200 480 Other: # Voids 4 3 # Bowel Movements 1 0 Stool Characteristics Foamy Liquid Liquid Active Medications: Current Medications Acetaminophen (Tylenol) 650 mg PO Q4H PRN PRN Reason: Pain (Mild 1-3) Stop: 08/02/20 10:26 Last Admin: 06/07/20 13:14 Dose: 650 mg Acetaminophen (Tylenol Extra Strength) 1,000 mg PO Q6H PRN PRN Reason: Pain (Moderate 4-6) Stop: 08/02/20 10:26 Last Admin: 06/07/20 20:47 Dose: 1,000 mg Al Hydrox/Mg Hydrox/Simethicone (Maalox) 30 ml PO Q4HR PRN PRN Reason: GI DISTRESS Stop: 08/02/20 10:26 Buspirone HCl (Buspar) 15 mg PO BID [facility] Stop: 08/02/20 08:59 Last Admin: 06/09/20 10:02 Dose: 15 mg Cephalexin Monohydrate (Keflex) 500 mg PO QID [facility] Stop: 08/05/20 12:59 Last Admin: 06/09/20 10:03 Dose: 500 mg Escitalopram Oxalate (Lexapro) 10 mg PO DAILY [facility]; Protocol Stop: 08/08/20 10:59 Last Admin: 06/09/20 11:07 Dose: 10 mg Haloperidol (Haldol) 5 mg PO HS [facility]; Protocol Stop: 08/02/20 20:59 Last Admin: 06/08/20 21:29 Dose: 5 mg Ibuprofen (Motrin) 400 mg PO Q4H PRN PRN Reason: Pain (Severe 7-10) Stop: 08/02/20 10:26 Last Admin: 06/06/20 00:09 Dose: 400 mg Lorazepam (Ativan) 0.5 mg PO Q4HR PRN; Protocol PRN Reason: Anxiety Stop: 07/03/20 10:26 Last Admin: 06/09/20 10:02 Dose: 0.5 mg Magnesium Hydroxide (Milk Of Magnesia) 30 ml PO HS PRN PRN Reason: Constipation Multivitamins/Vitamin C (Theragran) 1 tab PO DAILY [facility] Stop: 08/03/20 08:59 Last Admin: 06/09/20 10:03 Dose: 1 tab Neomycin/Polymyxin/Bacitracin (Triple Antibiotic Pkt) 1 pkt TP BID [facility] Stop: 08/04/20 14:59 Last Admin: 06/09/20 10:03 Dose: 1 pkt Nicotine (Nicotine Transdermal System) 14 mg TD DAILY [facility] Stop: 08/05/20 13:14 Last Admin: 06/09/20 10:02 Dose: 14 mg Olanzapine 15 mg/ Olanzapine 2 (.5 mg) 17.5 mg PO DAILY [facility] Stop: 08/07/20 08:59 Last Admin: 06/09/20 10:03 Dose: 17.5 mg Trazodone HCl (Desyrel) 100 mg PO HS [facility] Stop: 08/02/20 20:59 Last Admin: 06/08/20 21:29 Dose: 100 mg Zolpidem Tartrate (Ambien) 5 mg PO HS PRN PRN Reason: Insomnia Stop: 08/02/20 10:26 Last Admin: 06/08/20 22:43 Dose: 5 mg HEENT: NC/AT Neck: Supple Lungs: CTAB Cardiovascular: RRR, Normal S1, Normal S2 Abdomen: soft Extremities: clear Neurological: no change Internal Medicine Assmt/Plan - Assessment Assessment: 1. Cellulitis, nasal area 2. HTN - Plan Plan: continue keflex 500mg po q 6 hours continue supportive care d/w r.n. reviewed complete medical records Nutritional Asmnt/Malnutr-PDOC - Dietary Evaluation Malnutrition Findings (Please click <Entered> for more info): Nutritional Asmnt/Malnutrition Start: 06/08/20 12: 32 Text: Status: Complete Freq: Protocol: Document 06/08/20 12:32 SOFIE (Rec: 06/08/20 12:34 SOFIE [id number]) Nutritional Asmnt/Malnutrition Patient General Information Nutritional Screening Low Risk Diagnosis Acute Psychosis Pertinent Medical Hx/Surgical Hx HTN Subjective Information Pt is a 65-year-old female admitted on 06/02 d/t acute psychosis with aggressiveness, delusions, and bizarre behaviors. Pt is eating an estimated 96% of meals since admit date (x5 days) Per Meal/ Nutrition Activity Record. Dietary is currently providing an estimated 2200 kcals and 110 gm Pro, per pt intake this is providing an estimated 2100 kcals and 106gm pro to meet 100+% kcal and 100+% Pro needs. Visited pt in her room, she stated she had a good appetite and the food was fine , understood her Diet Rx. Anthropometrics HT: 57 WT: 196 LB (89.09 kg) ABW: 150 LB (68.30 kg) BMI: 30.70 (Obese, class I) GI/ Skin Integrity GI: WNL, Soft, Non-tender, Large BM: 06/07 x1 I/O: 1680/Not Noted Skin: WNL, boil below nose Tadeo: 22 Diet Order: Mechanical Soft, JEN Estimated Energy Needs: ( Geriatric, ABW) 8075-1667 kcals (20-25 kcals/ kg) 55-70g Pro (0.8-1.0 g/kg) 4287-9532 ml (20-25 ml/kg) Current Diet Order/ Nutrition Support Mechanical Soft, JEN Patient / S.O Can Pertinent Medications Maalox (PRN), MOM (PRN), Theragran Pertinent Labs 06/04: HDL 39 Nutritional Hx/Data Height 1.7 m Height (Calculated Centimeters) 170.2 Current Weight (lbs) 88.904 kg Weight (Calculated Kilograms) 88.9 Weight (Calculated Grams) 92403.1 [place] Body Weight 135 LB (61.36 kg) % [place] Body Weight 145 Body Mass Index (BMI) 30.7 Weight Status Obese GI Symptoms Skin Integrity/Comment: Skin: WNL, boil below nose Tadeo: 22 Current %PO Good (75-100%) Estimated Nutritional Goals BEE in Kcals: Adj wt of IBW Calories/Kcals/Kg 20-25 Kcals Calculated 2784-7799 Protein: Adj wt of IBW Protein g/k.8-1.0 Protein Calculated 55-70 Fluid: ml 0173-7427 ml (20-25 ml/kg) Nutritional Problem 1. Problem Problem Obese, class I Etiology r/t consistent energy overconsumption Signs/Symptoms: aeb BMI >30 (30.70). Malnutrition Related to Morbid Obesity Malnutrition related to morbid obesity No Intervention/Recommendation Comments Continue Mechanical Soft, JEN diet as tolerated. Expected Outcomes/Goals Expected Outcomes/Goals 1.PO intake to continue to meet >75% of estimated nutritional needs. 2.Monitor PO intake, wt, nutrition related labs, and skin integrity. 3.F/U as low risk in 7-10 days , 06/15-06/18.
--- NOTE | 2020-06-09 16:17 | Progress Notes ---
DATE: 06/09/2020 Case was discussed with staff of the patient, reviewed records. The patient is no longer reporting that she will harm herself. She reports that the voices are not as prominent. She is still in progress. She is sleeping well. She is eating well. No side effects with the medication, no sedation, no nausea, no extrapyramidal symptoms. She has been isolating herself. Continues to be depressed, overwhelmed. I will be adding Lexapro to her medication to help with her depression with poor energy, poor motivation, isolating herself. We will continue outpatient group therapy, milieu therapy, and adjust medications as needed. JOB# [id number]
[2020-06-10] MEDS: OLANZapine 15 MG, OLANZapine 2.5 MG PO SCH (08:40)
[2020-06-10] MEDS: Multivitamin Tab PO SCH (08:40)
[2020-06-10] MEDS: Triple Antibiotic 0.94 gm Pkt TP SCH ×2 (08:40→16:41)
[2020-06-10] MEDS: Nicotine 14 mg/24 hr Tdm TD SCH (11:41)
--- NOTE | 2020-06-10 13:38 | Internal Medicine Prog Note ---
Internal Medicine Subjective - Subjective Service Date: 06/10/20 Patient seen and examined:: without staff Patient is:: awake, asleep Per staff patient has:: no adverse event, no episodes of fall Internal Medicine Objective - Results Result Diagrams: 06/04/20 12:49 06/09/20 09:21 Recent Labs: Laboratory Last Values WBC 8.7 K/uL (4.8-10.8) 06/04/20 12:49 RBC 5.36 MIL/uL (4.2-6.2) 06/04/20 12:49 Hgb 14.6 g/dL (12.0-16.0) 06/04/20 12:49 Hct 45.6 % (36-48) 06/04/20 12:49 MCV 85 fL (79.0-98.0) 06/04/20 12:49 MCH 27 pg (27-31) 06/04/20 12:49 MCHC 32 % (32-36) 06/04/20 12:49 RDW 14.5 % (9.0-15.0) 06/04/20 12:49 Plt Count 123 K/uL (130-430) L 06/04/20 12:49 MPV 10.7 fl (7.4-10.4) H 06/04/20 12:49 Neut % (Auto) 70.5 % (40-70) H 06/04/20 12:49 Lymph % (Auto) 17.5 % (20.5-51.5) L 06/04/20 12:49 [place] % (Auto) 7.6 % (1.7-9.3) 06/04/20 12:49 Eos % (Auto) 3.7 % (0-4) 06/04/20 12:49 Baso % (Auto) 0.7 % (0.0-2.0) 06/04/20 12:49 Neut # (Auto) 6.2 K/uL (1.8-7.7) 06/04/20 12:49 Lymph # (Auto) 1.5 K/uL (1.0-5.5) 06/04/20 12:49 [place] # (Auto) 0.7 K/uL (0.0-1.0) 06/04/20 12:49 Eos # (Auto) 0.3 K/uL (0.0-0.4) 06/04/20 12:49 Baso # (Auto) 0.1 K/uL (0.0-0.2) 06/04/20 12:49 Sodium 140 mmol/L (136-145) 06/09/20 09:21 Potassium 3.7 mmol/L (3.5-5.1) 06/09/20 09:21 Chloride 107 mmol/L (98-107) 06/09/20 09:21 Carbon Dioxide 26 mmol/L (23-29) 06/09/20 09:21 Anion Gap 11 (5-15) 06/09/20 09:21 BUN 10 mg/dL (8-21) 06/09/20 09:21 Creatinine 0.94 mg/dL (0.70-1.30) 06/09/20 09:21 Glucose 133 mg/dL (70-99) H 06/09/20 09:21 POC Glucose 100 MG/DL (70 - 105) 06/02/20 19:47 Hemoglobin A1c 5.5 % (4.8-5.6) 06/04/20 12:49 Calcium 8.5 mg/dL (8.4-10.2) 06/09/20 09:21 Total Bilirubin 0.4 mg/dL (0.0-1.0) 06/09/20 09:21 AST 28 U/L (10-37) 06/09/20 09:21 ALT 48 U/L (12-78) 06/09/20 09:21 Alkaline Phosphatase 58 U/L (46-116) 06/09/20 09:21 Total Protein 6.2 g/dL (6.4-8.3) L 06/09/20 09:21 Albumin 2.8 g/dL (3.4-5.0) L 06/09/20 09:21 Triglycerides 129 mg/dL (30-150) 06/04/20 12:49 Cholesterol 159 mg/dL (<200) 06/04/20 12:49 LDL Cholesterol 116 mg/dL (0-129) 06/04/20 12:49 HDL Cholesterol 39 mg/dL (>55) L 06/04/20 12:49 - Physical Exam Vitals and I&O: Vital Signs Temp 98.6 F 06/10/20 06:00 Pulse 76 06/10/20 06:00 Resp 16 06/10/20 07:53 BP 121/75 06/10/20 06:00 Pulse Ox 91 06/10/20 06:00 Intake & Output 06/09/20 06/10/20 06/10/20 18:59 06:59 18:59 Intake Total 1200 120 Balance 1200 120 Intake: Oral 1200 120 Other: # Voids 4 3 # Bowel Movements 1 Stool Characteristics Liquid Soft Active Medications: Current Medications Acetaminophen (Tylenol) 650 mg PO Q4H PRN PRN Reason: Pain (Mild 1-3) Stop: 08/02/20 10:26 Last Admin: 06/07/20 13:14 Dose: 650 mg Acetaminophen (Tylenol Extra Strength) 1,000 mg PO Q6H PRN PRN Reason: Pain (Moderate 4-6) Stop: 08/02/20 10:26 Last Admin: 06/07/20 20:47 Dose: 1,000 mg Al Hydrox/Mg Hydrox/Simethicone (Maalox) 30 ml PO Q4HR PRN PRN Reason: GI DISTRESS Stop: 08/02/20 10:26 Buspirone HCl (Buspar) 15 mg PO BID [facility] Stop: 08/02/20 08:59 Last Admin: 06/10/20 08:40 Dose: 15 mg Cephalexin Monohydrate (Keflex) 500 mg PO QID [facility] Stop: 08/05/20 12:59 Last Admin: 06/10/20 13:31 Dose: 500 mg Escitalopram Oxalate (Lexapro) 10 mg PO DAILY [facility]; Protocol Stop: 08/08/20 10:59 Last Admin: 06/10/20 08:40 Dose: 10 mg Haloperidol (Haldol) 5 mg PO HS [facility]; Protocol Stop: 08/02/20 20:59 Last Admin: 06/09/20 20:07 Dose: 5 mg Ibuprofen (Motrin) 400 mg PO Q4H PRN PRN Reason: Pain (Severe 7-10) Stop: 08/02/20 10:26 Last Admin: 06/06/20 00:09 Dose: 400 mg Lorazepam (Ativan) 0.5 mg PO Q4HR PRN; Protocol PRN Reason: Anxiety Stop: 07/03/20 10:26 Last Admin: 06/09/20 10:02 Dose: 0.5 mg Magnesium Hydroxide (Milk Of Magnesia) 30 ml PO HS PRN PRN Reason: Constipation Multivitamins/Vitamin C (Theragran) 1 tab PO DAILY [facility] Stop: 08/03/20 08:59 Last Admin: 06/10/20 08:40 Dose: 1 tab Neomycin/Polymyxin/Bacitracin (Triple Antibiotic Pkt) 1 pkt TP BID [facility] Stop: 08/04/20 14:59 Last Admin: 06/10/20 08:40 Dose: 1 pkt Nicotine (Nicotine Transdermal System) 14 mg TD DAILY [facility] Stop: 08/05/20 13:14 Last Admin: 06/10/20 11:41 Dose: 14 mg Olanzapine 15 mg/ Olanzapine 2 (.5 mg) 17.5 mg PO DAILY [facility] Stop: 08/07/20 08:59 Last Admin: 06/10/20 08:40 Dose: 17.5 mg Trazodone HCl (Desyrel) 100 mg PO HS [facility] Stop: 08/02/20 20:59 Last Admin: 06/09/20 20:07 Dose: 100 mg Zolpidem Tartrate (Ambien) 5 mg PO HS PRN PRN Reason: Insomnia Stop: 08/02/20 10:26 Last Admin: 06/08/20 22:43 Dose: 5 mg HEENT: NC/AT Neck: Supple Lungs: CTAB Cardiovascular: RRR, Normal S1, Normal S2 Abdomen: soft Extremities: clear Neurological: no change Internal Medicine Assmt/Plan - Assessment Assessment: 1. Cellulitis, nasal area 2. HTN - Plan Plan: continue keflex 500mg po q 6 hours continue supportive care d/w r.n. reviewed complete medical records Nutritional Asmnt/Malnutr-PDOC - Dietary Evaluation Malnutrition Findings (Please click <Entered> for more info): Nutritional Asmnt/Malnutrition Start: 06/08/20 12: 32 Text: Status: Complete Freq: Protocol: Document 06/08/20 12:32 SOFIE (Rec: 06/08/20 12:34 SOFIE [id number]) Nutritional Asmnt/Malnutrition Patient General Information Nutritional Screening Low Risk Diagnosis Acute Psychosis Pertinent Medical Hx/Surgical Hx HTN Subjective Information Pt is a 65-year-old female admitted on 06/02 d/t acute psychosis with aggressiveness, delusions, and bizarre behaviors. Pt is eating an estimated 96% of meals since admit date (x5 days) Per Meal/ Nutrition Activity Record. Dietary is currently providing an estimated 2200 kcals and 110 gm Pro, per pt intake this is providing an estimated 2100 kcals and 106gm pro to meet 100+% kcal and 100+% Pro needs. Visited pt in her room, she stated she had a good appetite and the food was fine , understood her Diet Rx. Anthropometrics HT: 57 WT: 196 LB (89.09 kg) ABW: 150 LB (68.30 kg) BMI: 30.70 (Obese, class I) GI/ Skin Integrity GI: WNL, Soft, Non-tender, Large BM: 06/07 x1 I/O: 1680/Not Noted Skin: WNL, boil below nose Tadeo: 22 Diet Order: Mechanical Soft, JEN Estimated Energy Needs: ( Geriatric, ABW) 7729-7932 kcals (20-25 kcals/ kg) 55-70g Pro (0.8-1.0 g/kg) 7535-3464 ml (20-25 ml/kg) Current Diet Order/ Nutrition Support Mechanical Soft, JEN Patient / S.O Can Pertinent Medications Maalox (PRN), MOM (PRN), Theragran Pertinent Labs 06/04: HDL 39 Nutritional Hx/Data Height 1.7 m Height (Calculated Centimeters) 170.2 Current Weight (lbs) 88.904 kg Weight (Calculated Kilograms) 88.9 Weight (Calculated Grams) 62606.1 [place] Body Weight 135 LB (61.36 kg) % [place] Body Weight 145 Body Mass Index (BMI) 30.7 Weight Status Obese GI Symptoms Skin Integrity/Comment: Skin: WNL, boil below nose Tadeo: 22 Current %PO Good (75-100%) Estimated Nutritional Goals BEE in Kcals: Adj wt of IBW Calories/Kcals/Kg 20-25 Kcals Calculated 8594-5434 Protein: Adj wt of IBW Protein g/k.8-1.0 Protein Calculated 55-70 Fluid: ml 0691-5045 ml (20-25 ml/kg) Nutritional Problem 1. Problem Problem Obese, class I Etiology r/t consistent energy overconsumption Signs/Symptoms: aeb BMI >30 (30.70). Malnutrition Related to Morbid Obesity Malnutrition related to morbid obesity No Intervention/Recommendation Comments Continue Mechanical Soft, JEN diet as tolerated. Expected Outcomes/Goals Expected Outcomes/Goals 1.PO intake to continue to meet >75% of estimated nutritional needs. 2.Monitor PO intake, wt, nutrition related labs, and skin integrity. 3.F/U as low risk in 7-10 days , 06/15-06/18.
--- NOTE | 2020-06-10 18:23 | Progress Notes ---
DATE: 06/10/2020 SUBJECTIVE: Case was discussed with staff of the patient, reviewed records. The patient is starting to show progress. She is getting out of bed more often. She is able to take a shower. Depression is improving. I started on Lexapro yesterday. No side effects with the medication, no sedation, no nausea, no extrapyramidal symptoms. She reported the hallucinations are also not as prominent and we will continue outpatient group therapy, milieu therapy, and adjust medications as needed. JOB# [id number]
[2020-06-11] MEDS: Multivitamin Tab PO SCH (09:19)
[2020-06-11] MEDS: OLANZapine 15 MG, OLANZapine 2.5 MG PO SCH (09:20)
[2020-06-11] MEDS: Triple Antibiotic 0.94 gm Pkt TP SCH ×2 (09:20→16:47)
[2020-06-11] MEDS: Nicotine 14 mg/24 hr Tdm TD SCH (09:21)
[2020-06-11] MEDS: Venelex 60gm Tube TP SCH (09:25)
--- NOTE | 2020-06-11 18:12 | Progress Notes ---
DATE: 06/11/2020 Case was discussed with staff of the patient, reviewed records. The patient is doing much better. She is sleeping better, eating better. She tolerated the medication, adjustment with no side effects. She is starting to get more visible on the unit and taking care of ADLs. Sleeping well, eating well. We are in the process of trying to send her back home that she lives in [place] and will be discharged on Sunday and no side effects with the medication, no sedation, no nausea, no extrapyramidal symptoms. Will continue outpatient group therapy, milieu therapy, adjust medication as needed. JOB# [id number]
[2020-06-12] MEDS: Venelex 60gm Tube TP SCH (08:39)
[2020-06-12] MEDS: Nicotine 14 mg/24 hr Tdm TD SCH (08:39)
[2020-06-12] MEDS: OLANZapine 15 MG, OLANZapine 2.5 MG PO SCH (08:40)
[2020-06-12] MEDS: Multivitamin Tab PO SCH (08:41)
[2020-06-12] MEDS: Triple Antibiotic 0.94 gm Pkt TP SCH ×2 (08:42→16:09)
--- NOTE | 2020-06-12 13:21 | Progress Notes ---
DATE: 06/12/2020 SUBJECTIVE: A 65-year-old female, hearing voices, apparently wanting to kill herself. When I go to see her, she does not tell me her name is Radha Bonilla. 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 She keeps repeating this over and over again, very delusional, grandiose, bizarre, concerns really about her ability to function at a lower level of care given the extent and severity of her current psychotic state, given that she does not even introduced herself as Radha, but just tells me her name is the president and currently on dosing of Haldol, Zyprexa. Staff noted that she slept fairly well, seems to be mumbling to self. It is unclear where she is going to go and how she will take care of her basic needs, especially given that she thinks she is the president and lives in the [place]. Apparently, the patient resides with the father. ASSESSMENT: The patient remains symptomatic, still unruly, delusional, preoccupied, mumbles to self, concerns about her ability to be taking care of at a lower level of care. PLAN: We will continue to monitor. Continue dosing of Zyprexa, Haldol as well. [facility]# [id number]
[2020-06-13] MEDS: Multivitamin Tab PO SCH (08:11)
[2020-06-13] MEDS: OLANZapine 15 MG, OLANZapine 2.5 MG PO SCH (08:13)
[2020-06-13] MEDS: Nicotine 14 mg/24 hr Tdm TD SCH (08:15)
[2020-06-13] MEDS: Venelex 60gm Tube TP SCH (08:15)
--- NOTE | 2020-06-13 09:48 | Progress Notes ---
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 She does not introduce herself as her actual name. The patient noting voices, perceptual disturbances. Seems to be responding to internal stimuli, poor frustration tolerance. It is unclear where she is going to go when she leaves the hospital. Concerns really about her ability to attend to her basic needs. Family is involved, but it is unclear whether they will be able to actually take care of her. The patient is sleeping fairly well with wiper blender awakenings. Mood "okay." Currently on dosing of Haldol. Medications reviewed. Labs reviewed. Vitals were reviewed. ASSESSMENT: The patient symptomatic, highly delusional, poor reality testing, concerns in regards to her ability to attend to her basic needs given the extent and severity of her current psychotic state. PLAN: We will continue to monitor. No side effects noted. JOB# [id number]
[2020-06-14] MEDS: Multivitamin Tab PO SCH (08:47)
[2020-06-14] MEDS: Venelex 60gm Tube TP SCH (08:47)
[2020-06-14] MEDS: Nicotine 14 mg/24 hr Tdm TD SCH (08:47)
[2020-06-14] MEDS: OLANZapine 15 MG, OLANZapine 2.5 MG PO SCH (08:48)
--- NOTE | 2020-06-14 19:51 | Discharge Summary ---
DATE OF DISCHARGE: 06/14/2020 IDENTIFYING INFORMATION: The patient is a 65-year-old female. CHIEF COMPLAINT: "Hearing voices. I am going to kill myself." HISTORY OF PRESENT ILLNESS: The patient was brought from [facility] on a hold for danger to self. According to the hold, the patient apparently was hearing voices for a few days and that she does not know where she was. She did not know what was the day. She was guarded. She was depressed, anxious with a history of schizophrenia. The patient was lying in bed. She has no eye contact, whatsoever. She admits using speed, vodka, and heroin. Last use of vodka and heroin a few days prior to admission. Her urine drug screen was positive for meth. She reports she is sleeping all the time, hearing voices for years, sometimes she feels like she wants to harm herself, unable to contract for safety. For sometime voices telling her to harm herself. This has been going on for years, multiple prior hospitalizations at least more than twice in the last 10 years and 2 prior suicide attempts by overdosing on drugs. The patient with a history of using speed, vodka, and heroin, urine drug screen positive for meth. COURSE IN THE HOSPITAL: The patient was diagnosed with schizoaffective disorder, bipolar type, polysubstance abuse. The patient was started on Lexapro 10 mg a day that was added later. She was on Haldol 5 mg at bedtime, Zyprexa, the dose was increased through the course of her stay to 17.5 mg at bedtime. The patient progressively got better. In the beginning, she was on one-to-one, but later she felt better. She was sleeping well, eating well. She lives with her father, [place]. So, as she improved, she was no longer suicidal. She was cheerful, animated. No longer having any intent to harm herself or anyone. No longer hearing voices or seeing things. Sleeping well, eating well, felt she could be discharged to a lesser level of care. FINAL DIAGNOSES: Schizoaffective disorder, bipolar type, polysubstance abuse, heroin and meth, alcohol. MEDICAL DIAGNOSIS: As per medical doctor. The patient will follow up with the psychiatrist, primary care physician and therapist. CONDITION UPON DISCHARGE: The patient is able to take care of her ADLs. The patient is able to shower and function socially. The patient is no longer meeting criteria for further inpatient treatment and will follow up with her primary care physician and therapist. The patient is alert and oriented x 3. JOB# [id number]
== END 2020-06-14 13:45 | disposition home or self-care (01) | DRG 885 ==
LOC: GERO 18:38
PROVIDERS: ADMIT Psychiatry & Neurology Psychiatry; ATTEND Psychiatry & Neurology Psychiatry
DX: F25.0 Schizoaffective disorder, bipolar type (principal); E44.0 Moderate protein-calorie malnutrition; I10 Essential (primary) hypertension; F32.9 Major depressive disorder, single episode, unspecified; J34.0 Abscess, furuncle and carbuncle of nose; F15.10 Other stimulant abuse, uncomplicated; F10.10 Alcohol abuse, uncomplicated; Y90.9 Presence of alcohol in blood, level not specified; F11.10 Opioid abuse, uncomplicated; Z68.30 Body mass index [BMI] 30.0-30.9, adult
CPT/HCPCS: 36415-UA; 80053-TC; 80061-TC; 82948-90; 83036-90; 85025-TC; G0410; Z7610